=== PATIENT | male | born 1945 | race Caucasian/White ===

== ENCOUNTER → 2016-09-28 | Outpatient (CLI) | payer MEDICARE, OTHER ==
[~2016-09-28] MED LIST: ENAL10 PO; IBUP-1547 PO; OMEP20 PO
== END | disposition home or self-care (01) ==
LOC: RADPV 08:57
PROVIDERS: ATTEND Orthopaedic Surgery
DX: M17.11 Unilateral primary osteoarthritis, right knee (principal); Z96.652 Presence of left artificial knee joint

== ENCOUNTER 2016-10-19 05:53 | Inpatient (IN) | payer MEDICARE, OTHER ==
[2016-10-13 13:56] LABS: BASOPHILS % (AUTO) 0.4 % (0.0-2.0); EOSINOPHILS % (AUTO) 1.5 % (1.0-6.0); HEMATOCRIT 46.3 % (41-53); HEMOGLOBIN 15.1 g/dL (13.5-17.5); LYMPHOCYTES # (AUTO) 2.2 K/uL (1.0-4.8); LYMPHOCYTES % (AUTO) 25.8 % (22.0-44.0); MEAN CORPUSCULAR HGB CONC 32.5 G/dL (31.0-37.0); MEAN CORPUSCULAR VOLUME 92 fL (80-100); MONOCYTES # (AUTO) 0.7 K/uL (0.1-1.0); MONOCYTES % (AUTO) 8.5 % (2.0-9.0); NEUTROPHILS # (AUTO) 5.5 K/uL (1.8-7.7); NEUTROPHILS % (AUTO) 63.8 % (40.0-70.0); PLATELET COUNT (AUTO) 212 K/uL (150-450); RED BLOOD CELL COUNT(AUTO) 5.02 MIL/uL (4.50-5.90); RED CELL DISTRIBUTION WIDTH 13.6 % (11.5-14.5); WHITE BLOOD COUNT (AUTO) 8.7 K/uL (4.5-11.0)
[2016-10-13 14:07] LABS: ANION GAP 7 mmol/L (8-16); CALCIUM, TOTAL 9.1 mg/dL (8.8-10.5); CARBON DIOXIDE 31 mmol/L (22-29); CHLORIDE 104 mmol/L (98-107); CREATININE 0.72 mg/dL (0.60-1.30); GLOMERULAR FILTR. RATE CALC > 60 mL/min (>60); POTASSIUM 4.7 mmol/L (3.5-5.1); SODIUM SERUM 142 mmol/L (136-145); UREA NITROGEN, BLOOD 18 mg/dL (7-18)
[2016-10-13 14:08] LABS: PROTHROMBIN TIME 10.5 SEC (9.4-11.6)
[2016-10-13 14:14] LABS: ALANINE AMINOTRANSFERASE 22 U/L (12-78); ALBUMIN 4.2 g/dL (3.4-5.0); ASPARTATE AMINOTRANSFERASE 14 U/L (15-37); BILIRUBIN,TOTAL 0.6 mg/dL (0.1-1.0); TOTAL PROTEIN, SERUM 7.5 g/dL (6.4-8.2)
[~2016-10-19] VITALS: Ht 160 cm; Wt 66.8 kg
[~2016-10-19 05:53] MED LIST changes: +0.9% SODIUM CHLORIDE 10 ML VIAL IVP ONE; +CeFAZolin 2 GM/DEXTROSE 50 ML IV ONE; +DEXAMETHASONE SOD PHOS 4 MG/ML VIAL IVP ONE; +FentaNYL CITRATE-PF 100 MCG/2 ML VIAL IVP ONE; +GLYCOPYRROLATE 0.2 MG/ML VIAL IM ONE; +KETOROLAC TROMETHAMINE 60 MG/2 ML VIAL IM ONE; +MIDAZOLAM HCL 2 MG/2 ML VIAL IVP ONE; +NEOSTIGMINE METHYLSULFATE 1 MG/ML 10 ML VIAL IVP ONE; +ONDANSETRON HCL 4 MG/2 ML VIAL IVP ONE; +PROPOFOL 1% 20 ML VIAL IVP ONE; +RINGERS SOLUTION,LACTATED 1,000 ML IV ONE; +ROCURONIUM BROMIDE 10 MG/ML 5 ML VIAL IVP ONE; +SUCCINYLCHOLINE CHLORIDE 20 MG/ML 10 ML VIAL IVP ONE
[2016-10-19] MEDS ORDERED: VANCOMYCIN HCL 1 GM/VIAL ONE (06:45)
[2016-10-19] MEDS ORDERED: SODIUM CHLORIDE 0.9% 0 ML ONE ×2 (06:46)
[2016-10-19] MEDS ORDERED: BUPIVACAINE HCL/PF 0.5% 30 ML VIAL ONE ×2 (06:46→07:32)
[2016-10-19] MEDS ORDERED: SODIUM CL IRRIG SOLN BAG 3,000 ML IRRIG ONE (06:46)
[2016-10-19] MEDS: RINGERS SOLUTION,LACTATED 1,000 ML IV SCH ×2 (07:00→19:32)
[2016-10-19] MEDS ORDERED: TRANEXAMIC ACID 1,000 MG in DEXTROSE 5%-WATER 50 ML IV ONE (07:00)
[2016-10-19] MEDS ORDERED: CeFAZolin 2 GM/DEXTROSE 50 ML IV ONE (07:00)
[2016-10-19] MEDS ORDERED: CeFAZolin 2 GM/DEXTROSE 50 ML IV SCH (09:30)
[2016-10-19] MEDS ORDERED: FentaNYL CITRATE-PF 100 MCG/2 ML VIAL IVP PRN (09:45)
[2016-10-19] MEDS ORDERED: HYDROmorphone 2 MG/ML SYRINGE IVP PRN ×2 (09:45)
[2016-10-19] MEDS ORDERED: MEPERIDINE-PF 25 MG/ML SYRINGE IVP PRN (09:45)
[2016-10-19] MEDS ORDERED: KETOROLAC TROMETHAMINE 30 MG/ML VIAL IVP PRN (10:00)
[2016-10-19] MEDS ORDERED: OxyCODONE HCL/ACETAMINOPHEN 5-325 MG TABLET PO PRN (10:00)
[2016-10-19] MEDS ORDERED: ZOLPIDEM TARTRATE 5 MG TABLET PO PRN (10:00)
[2016-10-19] MEDS: ACETAMINOPHEN 1000 MG/ISO-OSM 100 ML IV SCH ×2 (10:06→17:49)
[2016-10-19] MEDS ORDERED: ACETAMINOPHEN 1000 MG/ISO-OSM 100 ML IV ONE (10:08)
[2016-10-19] MEDS ORDERED: ONDANSETRON HCL 4 MG/2 ML VIAL ONE (10:13)
[2016-10-19] MEDS ORDERED: ONDANSETRON HCL 4 MG/2 ML VIAL IVP ONE (10:15)
[2016-10-19] MEDS ORDERED: RINGERS SOLUTION,LACTATED 1,000 ML IV ONE (10:18)
[2016-10-19] MEDS ORDERED: RINGERS SOLUTION,LACTATED 1,000 ML IV SCH ×2 (10:30→11:30)
[2016-10-19] MEDS ORDERED: MEPERIDINE-PF 25 MG/ML SYRINGE ONE (10:38)
[2016-10-19 11:39] VITALS: BP 110/66
[2016-10-19] MEDS: CeFAZolin 2 GM/DEXTROSE 50 ML IV SCH ×2 (15:25→23:11)
[2016-10-19 15:32] VITALS: BP 113/74
[2016-10-19] MEDS: CYCLOBENZAPRINE HCL 10 MG TABLET PO PRN (15:54)
[2016-10-19] MEDS ORDERED: MORPHINE SULFATE/PF 0.5 MG/ML 10 ML AMP IVP ONE (17:51)
[2016-10-19 21:01] VITALS: BP 104/60
[2016-10-19 23:16] VITALS: BP 108/64
[2016-10-19] MEDS: OXYGEN THERAPY IH SCH (23:19)
[2016-10-20] MEDS: ACETAMINOPHEN 1000 MG/ISO-OSM 100 ML IV SCH (02:02)
[2016-10-20 05:14] VITALS: BP 115/55
[2016-10-20] MEDS: CeFAZolin 2 GM/DEXTROSE 50 ML IV SCH (07:42)
[2016-10-20] MEDS: ENOXAPARIN SODIUM 40 MG/0.4 ML PF SYRINGE SQ SCH (07:43)
[2016-10-20] MEDS: CYCLOBENZAPRINE HCL 10 MG TABLET PO PRN (07:43)
[2016-10-20 08:00] VITALS: BP 105/59
[2016-10-20] MEDS: OXYGEN THERAPY IH SCH ×2 (08:00→20:00)
[2016-10-20] MEDS: ENALAPRIL MALEATE 10 MG TABLET PO SCH (09:57)
[2016-10-20] MEDS: OMEPRAZOLE 20 MG CAPSULE PO SCH (09:57)
[2016-10-20 11:17] VITALS: BP 117/68
[2016-10-20 16:04] VITALS: BP 124/72
[2016-10-20 20:00] VITALS: BP 130/72
[2016-10-20] MEDS: OxyCODONE HCL/ACETAMINOPHEN 5-325 MG TABLET PO PRN (22:49)
[2016-10-21] VITALS (7 sets, daily range): BP systolic 117–137; BP diastolic 78–91
[2016-10-21] MEDS: OMEPRAZOLE 20 MG CAPSULE PO SCH (10:06)
[2016-10-21] MEDS: ENALAPRIL MALEATE 10 MG TABLET PO SCH (10:07)
[2016-10-21] MEDS: ENOXAPARIN SODIUM 40 MG/0.4 ML PF SYRINGE SQ SCH (10:07)
[2016-10-21] MEDS: OxyCODONE HCL/ACETAMINOPHEN 5-325 MG TABLET PO PRN ×3 (10:14→23:59)
[2016-10-21] MEDS: OXYGEN THERAPY IH SCH (20:00)
[2016-10-21] MEDS: CYCLOBENZAPRINE HCL 10 MG TABLET PO PRN (20:30)
[2016-10-22] MEDS: OxyCODONE HCL/ACETAMINOPHEN 5-325 MG TABLET PO PRN ×3 (04:34→16:31)
[2016-10-22 04:38] VITALS: BP 126/89
[2016-10-22] MEDS: OXYGEN THERAPY IH SCH (08:00)
[2016-10-22] MEDS: OMEPRAZOLE 20 MG CAPSULE PO SCH (08:34)
[2016-10-22] MEDS: ENALAPRIL MALEATE 10 MG TABLET PO SCH (08:34)
[2016-10-22] MEDS: ENOXAPARIN SODIUM 40 MG/0.4 ML PF SYRINGE SQ SCH (08:34)
[2016-10-22 09:33] VITALS: BP 115/82
[2016-10-22 11:52] VITALS: BP 126/70
[2016-10-22 15:39] VITALS: BP 114/73
== END 2016-10-22 17:52 | DRG 470 ==
LOC: 4E 05:53
PROVIDERS: ADMIT Orthopaedic Surgery; ATTEND Orthopaedic Surgery
PROC: 0SRC0J9 Replacement of Right Knee Joint with Synthetic Substitute, Cemented, Open Approach (ICD-10-PCS; principal; 2016-10-19 07:30)
DX: M17.11 Unilateral primary osteoarthritis, right knee (principal); Z47.1 Aftercare following joint replacement surgery; M17.12 Unilateral primary osteoarthritis, left knee; Z96.653 Presence of artificial knee joint, bilateral
CPT/HCPCS: 87081; 88300; 93005; 97110; 97116; 97161; 97165; 97530; 97535; J0131; J0330; J0690; J1100; J1170; J1650; J1885; J2175; J2250; J2274; J2405; J2704; J3010; J3370; J3490; J7050; J7060; J7120

== ENCOUNTER 2017-03-23 13:22 | Emergency (ER) | payer MEDICARE, OTHER ==
[~2017-03-23] VITALS: Ht 165.1 cm; Wt 64.5 kg
[~2017-03-23 13:22] MED LIST changes: -0.9% SODIUM CHLORIDE 10 ML VIAL IVP ONE; -CeFAZolin 2 GM/DEXTROSE 50 ML IV ONE; -DEXAMETHASONE SOD PHOS 4 MG/ML VIAL IVP ONE; -ENAL10 PO; +ENAL10TA2 PO; -FentaNYL CITRATE-PF 100 MCG/2 ML VIAL IVP ONE; -GLYCOPYRROLATE 0.2 MG/ML VIAL IM ONE; -IBUP-1547 PO; +IBUP-2071 PO; -KETOROLAC TROMETHAMINE 60 MG/2 ML VIAL IM ONE; -MIDAZOLAM HCL 2 MG/2 ML VIAL IVP ONE; -NEOSTIGMINE METHYLSULFATE 1 MG/ML 10 ML VIAL IVP ONE; -ONDANSETRON HCL 4 MG/2 ML VIAL IVP ONE; -PROPOFOL 1% 20 ML VIAL IVP ONE; -RINGERS SOLUTION,LACTATED 1,000 ML IV ONE; -ROCURONIUM BROMIDE 10 MG/ML 5 ML VIAL IVP ONE; -SUCCINYLCHOLINE CHLORIDE 20 MG/ML 10 ML VIAL IVP ONE
[2017-03-23 14:44] LABS: APPEARANCE,URINE CLOUDY (CLEAR); GLUCOSE, URINE (UA) NEGATIVE (NEGATIVE); KETONES,URINE 15 mg/dL (NEGATIVE); LEUKOCYTE ESTERASE ,URINE SMALL (NEGATIVE); OCCULT BLOOD,URINE NEGATIVE (NEGATIVE); PH,URINE 5.5 (5.0-8.0); PROTEIN,URINE NEGATIVE (NEGATIVE)
[2017-03-23] MEDS ORDERED: MORPHINE SULFATE 4 MG/ML SYRINGE IVP ONE (14:45)
[2017-03-23] MEDS ORDERED: SODIUM CHLORIDE 0.9% 1,000 ML IV ONE (14:45)
[2017-03-23] MEDS ORDERED: ONDANSETRON HCL 4 MG/2 ML VIAL IVP ONE (14:45)
[2017-03-23 14:50] LABS: ADD UA MICROSCOPIC YES; RBC,URINE None Seen /HPF (0-2)
[2017-03-23 14:57] LABS: EOSINOPHILS % (AUTO) 0 % (1.0-6.0); HEMATOCRIT 48.1 % (41-53); HEMOGLOBIN 16.2 g/dL (13.5-17.5); LYMPHOCYTES # (AUTO) 0.5 K/uL (1.0-4.8); LYMPHOCYTES % (AUTO) 4.3 % (22.0-44.0); MEAN CORPUSCULAR HEMOGLOBIN 31.2 pg (26.0-34.0); MEAN CORPUSCULAR HGB CONC 33.6 G/dL (31.0-37.0); MEAN CORPUSCULAR VOLUME 93 fL (80-100); MONOCYTES # (AUTO) 0.1 K/uL (0.1-1.0); MONOCYTES % (AUTO) 1.1 % (2.0-9.0); NEUTROPHILS # (AUTO) 10.7 K/uL (1.8-7.7); PLATELET COUNT (AUTO) 190 K/uL (150-450); RED BLOOD CELL COUNT(AUTO) 5.18 MIL/uL (4.50-5.90); WHITE BLOOD COUNT (AUTO) 11.4 K/uL (4.5-11.0)
[2017-03-23 14:58] LABS: NEUTROPHILS % (AUTO) 94.6 % (40.0-70.0)
[2017-03-23 15:18] LABS: ANION GAP 13 mmol/L (8-16); CALCIUM, TOTAL 9.6 mg/dL (8.8-10.5); CARBON DIOXIDE 26 mmol/L (22-29); CHLORIDE 101 mmol/L (98-107); GLOMERULAR FILTR. RATE CALC > 60 mL/min (>60); POTASSIUM 4.3 mmol/L (3.5-5.1); SODIUM SERUM 140 mmol/L (136-145); UREA NITROGEN, BLOOD 18 mg/dL (7-18)
[2017-03-23 15:22] LABS: ALANINE AMINOTRANSFERASE 195 U/L (12-78); ALBUMIN 4.1 g/dL (3.4-5.0); ASPARTATE AMINOTRANSFERASE 58 U/L (15-37); BILIRUBIN,TOTAL 5.1 mg/dL (0.1-1.0); TOTAL PROTEIN, SERUM 8.2 g/dL (6.4-8.2)
[2017-03-23] MEDS ORDERED: BARIUM SULFATE 0.1% SUSPENSION 450 ML BOTTLE PO ONE (15:30)
[2017-03-23 15:32] LABS: RBC MORPHOLOGY COMMENT NORMAL RBC MORPH
[2017-03-23] MEDS ORDERED: MetroNIDAZOLE 500 MG/NACL 100 ML IV ONE (20:00)
[2017-03-23] MEDS ORDERED: CIPROFLOXACIN 400 MG/D5% WATER 200 ML IV ONE (20:00)
[2017-03-23] MEDS ORDERED: ONDANSETRON HCL 4 MG/2 ML VIAL IVP PRN ×2 (20:30→21:00)
[2017-03-23] MEDS ORDERED: 0.9% SODIUM CHLORIDE 10 ML SYRINGE IVP PRN (20:30)
[2017-03-23] MEDS ORDERED: MORPHINE SULFATE 4 MG/ML SYRINGE IVP PRN (20:30)
[2017-03-23] MEDS ORDERED: MAGNESIUM HYDROXIDE SUSPENSION 30 ML UDCUP PO PRN (21:00)
[2017-03-23] MEDS ORDERED: SODIUM CHLORIDE 0.9% 1,000 ML IV SCH (21:00)
[2017-03-23] MEDS ORDERED: DOCUSATE SODIUM 100 MG CAPSULE PO SCH (21:00)
[2017-03-23] MEDS ORDERED: ACETAMINOPHEN 325 MG TABLET PO PRN (21:00)
[2017-03-23] MEDS ORDERED: MORPHINE SULFATE 2 MG/ML SYRINGE IVP PRN (21:00)
[2017-03-24] MEDS ORDERED: PIPERACILLIN/TAZO 3.375 GM/D5W 50 ML IV SCH
[2017-03-24 00:02] VITALS: BP 110/70
[2017-03-24] MEDS ORDERED: PANTOPRAZOLE SODIUM 40 MG/VIAL IVP SCH (09:00)
== END 2017-03-24 00:23 | disposition short-term general hospital (02) ==
LOC: EMS 13:24 → 6N 20:00 → UNDOADMIN 20:00 → EMS 03-24 00:23
DX: K80.42 Calculus of bile duct with acute cholecystitis without obstruction (principal); K21.9 Gastro-esophageal reflux disease without esophagitis; I10 Essential (primary) hypertension
CPT/HCPCS: 36415; 74177; 76705; 80053; 81001; 83690; 84484; 85025; 87040; 93005; 96365; 96367; 96375; 99285; J0744; J2270; J2405; J2543; J3490; J7030

== ENCOUNTER 2020-08-16 16:17 | Emergency (ER) | payer MEDICARE, OTHER ==
[~2020-08-16] VITALS: Ht 152.4 cm; Wt 72.7 kg
[~2020-08-16 16:17] MED LIST changes: +ENAL-90 PO; -ENAL10TA2 PO
[2020-08-16 17:19] LABS: HEMATOCRIT 43.6 % (41-53); HEMOGLOBIN 14.8 g/dL (13.5-17.5); MEAN CORPUSCULAR HEMOGLOBIN 31.9 pg (26.0-34.0); MEAN CORPUSCULAR VOLUME 94 fL (80-100); PLATELET COUNT (AUTO) 233 K/uL (150-450); RED BLOOD CELL COUNT(AUTO) 4.65 MIL/uL (4.50-5.90); RED CELL DISTRIBUTION WIDTH 12.4 % (11.5-14.5)
[2020-08-16 17:28] LABS: APPEARANCE,URINE CLEAR (CLEAR); BILIRUBIN,URINE NEGATIVE (NEGATIVE); GLUCOSE, URINE (UA) NEGATIVE (NEGATIVE); KETONES,URINE TRACE mg/dL (NEGATIVE); LEUKOCYTE ESTERASE ,URINE NEGATIVE (NEGATIVE); NITRATE,URINE NEGATIVE (NEGATIVE); OCCULT BLOOD,URINE MODERATE (NEGATIVE); PROTEIN,URINE NEGATIVE (NEGATIVE); UROBILINOGEN,URINE 0.2 mg/dL (<=1.0)
[2020-08-16 17:35] LABS: ANION GAP 14 mmol/L (8-16); CALCIUM, TOTAL 9.1 mg/dL (8.8-10.5); CARBON DIOXIDE 23 mmol/L (22-29); CHLORIDE 103 mmol/L (98-107); CREATININE 0.87 mg/dL (0.60-1.30); GLOMERULAR FILTR. RATE CALC > 60 mL/min (>60); GLUCOSE,RANDOM 111 mg/dL (70-110); POTASSIUM 4.2 mmol/L (3.5-5.1); SODIUM SERUM 140 mmol/L (136-145); UREA NITROGEN, BLOOD 17 mg/dL (7-18)
[2020-08-16 17:37] LABS: BACTERIA,URINE None Seen /HPF (None Seen); SQUAMOUS EPITHELIAL CELL,UR Few /LPF (None Seen); WBC,URINE 0-2 /HPF (0-5)
[2020-08-16 17:47] LABS: BAND NEUTROPHILS % (MANUAL) 0 % (0-5); LYMPHOCYTES % (MANUAL) 3 % (22-44); SEGMENTED NEUTROPHILS % 93 % (40-70)
[2020-08-16 17:48] LABS: MONOCYTES % (MANUAL) 4 % (2-9)
[2020-08-16 17:49] LABS: ALANINE AMINOTRANSFERASE 25 U/L (12-78); ALKALINE PHOSPHATASE 60 U/L (46-116); ASPARTATE AMINOTRANSFERASE 19 U/L (15-37); BILIRUBIN,TOTAL 0.5 mg/dL (0.1-1.0); TOTAL PROTEIN, SERUM 7.1 g/dL (6.4-8.2)
[2020-08-16 19:06] VITALS: BP 125/72
== END 2020-08-16 19:30 | disposition home or self-care (01) ==
LOC: EMS 16:17
DX: R33.9 Retention of urine, unspecified (principal)
CPT/HCPCS: 51702; 99283; 99284